=== PATIENT | female | born 1970 | race Caucasian/White ===

== ENCOUNTER → 2020-06-12 | Outpatient (REF) | payer BC | LOC: M LAB REF 18:11 | PROVIDERS: ATTEND Physician Assistant Medical | DX: Z20.822 Contact with and (suspected) exposure to COVID-19 (principal) ==

== ENCOUNTER 2022-06-25 09:07 | Emergency (ER) | payer BC ==
[~2022-06-25] VITALS: Ht 157.5 cm; Wt 84.1 kg
[2022-06-25] MEDS ORDERED: KETOROLAC 30 MG/ML 1ML VIAL IV ONE (11:05)
[2022-06-25] MEDS ORDERED: NS 1,000 ML IV ONE (11:05)
[2022-06-25 11:24] LABS: BASO # 0.1 10^3/uL (0.0-0.2); BASO % 1.1 % (0.0-1.0); EOS # 0.5 10^3/uL (0.0-0.5); HEMATOCRIT 39.7 % (36.0-47.0); HEMOGLOBIN 12.1 g/dl (12.0-15.5); LYMPH # 1.6 10^3/uL (1.5-5.0); LYMPH % 28.6 % (24.0-44.0); MEAN CORPUSCULAR HEMOGLOBIN 20.3 pg (27.0-33.0); MEAN CORPUSCULAR HGB CONC 30.5 g/dl (32.0-36.5); MEAN CORPUSCULAR VOLUME 66.5 fl (80.0-96.0); MONO # 0.3 10^3/uL (0.0-0.8); MONO % 5.3 % (2.0-8.0); NEUTROPHILS # 3.2 10^3/uL (1.5-8.5); PLATELET COUNT, AUTOMATED 154 10^3/uL (150-450); RED BLOOD COUNT 5.97 10^6/uL (4.00-5.40); WHITE BLOOD COUNT 5.6 10^3/uL (4.0-10.0)
[2022-06-25 11:51] LABS: CK-MB VALUE MASS < 1.0 NG/ML (<3.6)
[2022-06-25 11:53] LABS: CPK CREATINE PHOSPHOKINASE 74 U/L (34-145); MB/CK RELATIVE INDEX 1.35 (< OR =4)
[2022-06-25 13:00] LABS: CK-MB VALUE MASS < 1.0 NG/ML (<3.6)
[2022-06-25 13:02] LABS: CPK CREATINE PHOSPHOKINASE 64 U/L (34-145); MB/CK RELATIVE INDEX 1.56 (< OR =4)
[2022-06-25] MEDS ORDERED: LISI5TAB11 PO (13:40)
[2022-06-25 13:45] VITALS: BP 190/91
[2022-06-25] MEDS ORDERED: lisinopriL 5 MG TAB PO ONE (13:45)
[2022-06-25 13:52] VITALS: BP 183/81
== END 2022-06-25 13:59 | disposition home or self-care (01) ==
LOC: M ED 09:07
DX: I16.0 Hypertensive urgency (principal); R10.9 Unspecified abdominal pain; R31.9 Hematuria, unspecified; Z88.8 Allergy status to other drugs, medicaments and biological substances
CPT/HCPCS: 74176; 80047; 81001; 82550; 82553; 84484; 84702; 85025; 93005; 93041; 94760; 96374; 99285; J1885

== ENCOUNTER → 2022-07-27 | Outpatient (CLI) | payer BC ==
[~2022-07-27] MED LIST: LISI5TAB11 PO
== END ==
LOC: M WHC 16:29
PROVIDERS: ATTEND Registered Nurse
DX: Z12.31 Encounter for screening mammogram for malignant neoplasm of breast (principal)

== ENCOUNTER → 2022-07-27 | Outpatient (CLI) | payer BC ==
[2022-07-27 12:24] LABS: HEMOGLOBIN A1c 5.3 % (4.0-6.0)
[2022-07-27 12:30] LABS: ALBUMIN 3.6 G/DL (3.2-5.2); ALKALINE PHOSPHATASE 69 U/L (46-116); ALT/SGPT 15 U/L (7.0-40); AST/SGOT 16 U/L (<34); BILIRUBIN,TOTAL 0.7 MG/DL (0.3-1.2); BLOOD UREA NITROGEN 22 MG/DL (9-23); CARBON DIOXIDE LEVEL 29 MMOL/L (20-31); CHLORIDE LEVEL 105 MMOL/L (98-107); CHOLESTEROL LEVEL 187 MG/DL (<200); CHOLESTEROL RISK RATIO 2.92 (<5); CREATININE FOR GFR 0.77 MG/DL (0.55-1.30); GLOMERULAR FILTRATION RATE > 60.0 (>51); GLUCOSE, FASTING 89 MG/DL (60-100); LDL CHOLESTEROL 112.6 MG/DL (<100); POTASSIUM SERUM 4.4 MMOL/L (3.5-5.1); SODIUM LEVEL 138 MMOL/L (136-145); TRIGLYCERIDES LEVEL 52 MG/DL (<150)
[2022-07-27 12:31] LABS: THYROID STIMULATING HORMONE 1.226 uIU/ML (0.55-4.78)
== END ==
LOC: M LAB 10:52
PROVIDERS: ATTEND Registered Nurse
DX: Z00.00 Encounter for general adult medical examination without abnormal findings (principal); I10 Essential (primary) hypertension

== ENCOUNTER → 2022-08-03 | Outpatient (REF) | payer BC | LOC: M LAB REF 17:22 | PROVIDERS: ATTEND Registered Nurse | DX: Z01.419 Encounter for gynecological examination (general) (routine) without abnormal findings (principal) ==

== ENCOUNTER → 2024-11-20 | Outpatient (CLI) | payer BC ==
[~2024-11-20] MED LIST changes: +LEXA5TAB13 PO; +LISI20TA37 PO
[2024-11-20 12:06] LABS: BASO # 0.1 10^3/uL (0.0-0.2); BASO % 1.3 % (0.0-1.0); EOS # 0.6 10^3/uL (0.0-0.5); EOS % 9.1 % (0.0-3.0); LYMPH # 1.6 10^3/uL (1.5-5.0); LYMPH % 24.3 % (24.0-44.0); MONO # 0.4 10^3/uL (0.0-0.8); MONO % 6.9 % (2.0-8.0); NEUTROPHILS # 3.7 10^3/uL (1.5-8.5); NEUTROPHILS % 58.2 % (36.0-66.0); PLATELET COUNT, AUTOMATED 113 10^3/uL (150-450)
[2024-11-20 12:29] LABS: FREE T4 0.96 NG/DL (0.89-1.76)
[2024-11-20 12:42] LABS: ALT/SGPT 18.0 U/L (7.0-40); AST/SGOT 18.0 U/L (<34); CALCIUM LEVEL 9.3 MG/DL (8.5-10.1); CARBON DIOXIDE LEVEL 32.0 MMOL/L (20-31); CHLORIDE LEVEL 101.0 MMOL/L (98-107); CHOLESTEROL LEVEL 205.0 MG/DL (<200); CHOLESTEROL RISK RATIO 3.98 (<5); CREATININE FOR GFR 0.9 MG/DL (0.55-1.30); GLOMERULAR FILTRATION RATE 76.4 (>51); LDL CHOLESTEROL 136.8 MG/DL (<100); NON-HDL-C 153.6 MG/DL; POTASSIUM SERUM 4.0 MMOL/L (3.5-5.1); SODIUM LEVEL 143.0 MMOL/L (136-145); TRIGLYCERIDES LEVEL 84.0 MG/DL (<150)
[2024-11-20 13:48] LABS: ESTIMATED AVERAGE GLUCOSE 117.0 MG/DL (60-110)
== END ==
LOC: M LAB 11:25
PROVIDERS: ATTEND Registered Nurse
DX: I10 Essential (primary) hypertension (principal)

== ENCOUNTER → 2024-11-25 | Outpatient (CLI) | payer BC | LOC: M PLAIMG 14:25 | PROVIDERS: ATTEND Registered Nurse | DX: R10.31 Right lower quadrant pain (principal); K80.20 Calculus of gallbladder without cholecystitis without obstruction ==

== ENCOUNTER → 2025-01-05 | Outpatient (CLI) | payer BC ==
[2025-01-05 11:35] LABS: BASO # 0.1 10^3/uL (0.0-0.2); BASO % 1.5 % (0.0-1.0); EOS # 0.5 10^3/uL (0.0-0.5); EOS % 9.8 % (0.0-3.0); LYMPH # 1.6 10^3/uL (1.5-5.0); LYMPH % 28.5 % (24.0-44.0); MONO # 0.4 10^3/uL (0.0-0.8); MONO % 7.4 % (2.0-8.0); NEUTROPHILS # 2.9 10^3/uL (1.5-8.5); NEUTROPHILS % 52.6 % (36.0-66.0); PLATELET COUNT, AUTOMATED 130 10^3/uL (150-450)
[2025-01-05 11:56] LABS: IRON (FE) 88.0 UG/DL (50-170); PERCENT SATURATION 27.0 % (13.2-45.0)
== END ==
LOC: M LAB 10:23
PROVIDERS: ATTEND Registered Nurse
DX: D64.9 Anemia, unspecified (principal)